=== PATIENT | male | born 1975 | race Two or more races ===

== ENCOUNTER 2021-01-05 12:01 | Emergency (ER) | payer MEDICAID, OTHER ==
[~2021-01-05] VITALS: Ht 170.2 cm; Wt 86.2 kg
[2021-01-05] MEDS ORDERED: LIDOCAINE 1% HCL (LOCAL ANESTH.) INJ 20ML MDV IJ ONE (15:15)
[2021-01-05] MEDS ORDERED: cefTRIAXone SOD 1,000 MG VL IM ONE (15:15)
[2021-01-05 15:31] VITALS: BP 125/90
== END 2021-01-05 16:06 | disposition home or self-care (01) ==
LOC: ER 12:01
DX: N49.2 Inflammatory disorders of scrotum (principal); N43.3 Hydrocele, unspecified
CPT/HCPCS: 55100; 76870; 96372; 99284; J0696

== ENCOUNTER 2021-02-25 14:41 | Inpatient (IN) | payer MEDICAID ==
[~2021-02-25] VITALS: Ht 170.2 cm; Wt 89.1 kg
[2021-02-25] MEDS ORDERED: TAMSULOSIN HYDROCHLORIDE 0.4 MG CAP PO ONE (15:15)
[2021-02-25 15:35] LABS: Basophils # (auto) 0.1 10 ^3/uL (0-0.2); Basophils % (auto) 0.4 % (0.0-2.0); Eosinophils # (auto) 0.1 10 ^3/uL (0-0.8); Eosinophils % (auto) 0.5 % (0.0-7.0); Hematocrit 42.9 % (41.0-53.0); Hemoglobin 14.8 g/dL (13.5-17.5); Lymphocytes # (auto) 3.1 10 ^3/uL (0.4-5.4); Lymphocytes % (auto) 16.1 % (10.0-50.0); Mean Corpuscular Hemoglobin 30.4 pg (28.0-32.0); Mean Corpuscular Hgb Conc. 34.6 g/dL (32.0-36.0); Mean Corpuscular Volume 87.9 fL (80.0-100.0); Monocytes # (auto) 2.3 10 ^3/uL (0-1.3); Monocytes % (auto) 11.9 % (0.0-12.0); Neutrophils # (auto) 13.9 10 ^3/uL (1.6-8.6); Neutrophils % (auto) 71.1 % (37.0-80.0); Nucleated Red Blood Cells % 0.1 %; Red Blood Cells 4.88 10^6/uL (4.5-5.90); Red Cell Distribution Width 12.5 % (11.8-14.3); White Blood Cell 19.5 10^3/uL (4.4-10.8)
[2021-02-25 15:52] LABS: Albumin 3.8 g/dL (3.4-5.0); Calcium 9.4 mg/dL (8.5-10.1); Potassium 3.9 mmol/L (3.5-5.1)
[2021-02-25 15:55] LABS: BUN/Creatinine Ratio 10.6; Bilirubin, Total 0.4 mg/dL (0.2-1.0); Total Protein 8.3 g/dL (6.4-8.2)
[2021-02-25 17:18] LABS: Urine Bacteria FEW /hpf (None Seen); Urine Blood 1+ /uL (Negative); Urine Hyaline Cast FEW /lpf (0 - 2); Urine Specific Gravity 1.005 (1.001-1.035); Urine WBC 131 /hpf (0 - 3); Urine WBC Clumps PRESENT /hpf (None Seen)
[2021-02-25] MEDS ORDERED: cefTRIAXone 1GM/50ML D5W 50 ML IV ONE (18:30)
[2021-02-25] MEDS ORDERED: ACETAMINOPHEN 325 MG TAB PO PRN (20:45)
[2021-02-25] MEDS ORDERED: MORPHINE SULFATE 4 MG/ML SYR/VIAL IV PRN (20:45)
[2021-02-25] MEDS: SODIUM CHLORIDE 0.9% 1,000 ML IV SCH (20:45)
[2021-02-25] MEDS ORDERED: HYDROcodone-ACET 5/325MG TAB PO PRN (20:45)
[2021-02-25] MEDS ORDERED: DOCUSATE SOD 100 MG CAP PO PRN (20:45)
[2021-02-25] MEDS ORDERED: DEXTROSE (50%) 50ML SYRG IV PRN (20:45)
[2021-02-25] MEDS ORDERED: ONDANSETRON HCL 4 MG/2 ML VIAL IV PRN (20:45)
[2021-02-25] MEDS: ACETAMINOPHEN 325 MG TAB PO PRN (20:55)
[2021-02-25] MEDS: ACCU-CHEK COMFORT CURVE STRIP VI SCH (22:21)
[2021-02-25] MEDS: InsuLIN REG 1unit/0.01ml Soln (100units/ml) SC SCH (22:22)
[2021-02-25] MEDS ORDERED: NITROGLYCERIN 0.4 MG SL TAB SL PRN (23:15)
[2021-02-26] MEDS: ACCU-CHEK COMFORT CURVE STRIP VI SCH ×4 (06:38→21:39)
[2021-02-26] MEDS: InsuLIN REG 1unit/0.01ml Soln (100units/ml) SC SCH ×4 (06:42→21:54)
[2021-02-26 07:59] LABS: Basophils # (auto) 0.1 10 ^3/uL (0-0.2); Basophils % (auto) 0.5 % (0.0-2.0); Eosinophils # (auto) 0.1 10 ^3/uL (0-0.8); Eosinophils % (auto) 0.7 % (0.0-7.0); Hematocrit 41.6 % (41.0-53.0); Hemoglobin 14.6 g/dL (13.5-17.5); Lymphocytes # (auto) 2.6 10 ^3/uL (0.4-5.4); Lymphocytes % (auto) 24.5 % (10.0-50.0); Mean Corpuscular Hemoglobin 30.9 pg (28.0-32.0); Mean Corpuscular Hgb Conc. 35.1 g/dL (32.0-36.0); Mean Corpuscular Volume 88.1 fL (80.0-100.0); Monocytes # (auto) 1.4 10 ^3/uL (0-1.3); Monocytes % (auto) 13.4 % (0.0-12.0); Neutrophils # (auto) 6.5 10 ^3/uL (1.6-8.6); Neutrophils % (auto) 60.9 % (37.0-80.0); Red Blood Cells 4.72 10^6/uL (4.5-5.90); Red Cell Distribution Width 12.6 % (11.8-14.3); White Blood Cell 10.7 10^3/uL (4.4-10.8)
[2021-02-26 08:24] LABS: Albumin 3.4 g/dL (3.4-5.0); BUN/Creatinine Ratio 12.3; Calcium 9.2 mg/dL (8.5-10.1); Potassium 4.2 mmol/L (3.5-5.1)
[2021-02-26 08:27] LABS: Bilirubin, Total 0.4 mg/dL (0.2-1.0)
[2021-02-26] MEDS: cefTRIAXone 1GM/50ML D5W 50 ML IV SCH (08:46)
[2021-02-26] MEDS: ENOXAPARIN SOD 40 MG/0.4 ML SYRINGE SC SCH (09:51)
[2021-02-26] MEDS: FAMOTIDINE (10MG/ML) 2ML VL IV SCH (09:51)
[2021-02-26] MEDS: SODIUM CHLORIDE 0.9% 1,000 ML IV SCH (13:25)
[2021-02-26 15:30] VITALS: BP 111/78
[2021-02-26 17:00] VITALS: BP 109/77
[2021-02-26] MEDS ORDERED: TAMSULOSIN HYDROCHLORIDE 0.4 MG CAP PO SCH (18:00)
[2021-02-26] MEDS: ACETAMINOPHEN 325 MG TAB PO PRN (18:34)
[2021-02-26] MEDS ORDERED: METF-370 PO (19:08)
[2021-02-26] MEDS ORDERED: PIO30T PO (19:08)
[2021-02-26] MEDS ORDERED: GLIP5TAB12 PO (19:08)
[2021-02-26 22:00] VITALS: BP 119/82
[2021-02-27 05:00] VITALS: BP 110/72
[2021-02-27] MEDS: ACCU-CHEK COMFORT CURVE STRIP VI SCH ×2 (06:21→11:14)
[2021-02-27] MEDS: InsuLIN REG 1unit/0.01ml Soln (100units/ml) SC SCH ×2 (06:24→11:53)
[2021-02-27] MEDS: SODIUM CHLORIDE 0.9% 1,000 ML IV SCH (06:49)
[2021-02-27 08:00] VITALS: BP 116/83
[2021-02-27 09:00] VITALS: BP 116/83
[2021-02-27] MEDS: FAMOTIDINE (10MG/ML) 2ML VL IV SCH (11:09)
[2021-02-27] MEDS: ENOXAPARIN SOD 40 MG/0.4 ML SYRINGE SC SCH (11:09)
[2021-02-27] MEDS: cefTRIAXone 1GM/50ML D5W 50 ML IV SCH (11:10)
[2021-02-27 14:18] VITALS: BP 115/78
== END 2021-02-27 14:58 | disposition home or self-care (01) | DRG 720 ==
LOC: ER 14:42 → OVERFLOW 23:15 → WEST WING 02-26 12:52
PROVIDERS: ADMIT Nurse Practitioner Family; ATTEND Family Medicine
DX: A41.51 Sepsis due to Escherichia coli [E. coli] (principal); N12 Tubulo-interstitial nephritis, not specified as acute or chronic; E11.65 Type 2 diabetes mellitus with hyperglycemia; E78.5 Hyperlipidemia, unspecified; I10 Essential (primary) hypertension; Z20.822 Contact with and (suspected) exposure to COVID-19; Z91.14 Patient's other noncompliance with medication regimen
CPT/HCPCS: 36415; 71046; 74176; 80053; 81001; 82962; 83036; 83605; 85025; 87040; 87086; 87088; 87186; 87426; 93005; 96365; 96366; 96372; 96375; G0378; J0696; J1815; J3490

== ENCOUNTER 2021-09-29 00:15 | Emergency (ER) | payer MEDICAID ==
[~2021-09-29] VITALS: Ht 170.2 cm; Wt 90.7 kg
[2021-09-29 00:15] VITALS: BP 129/77
[~2021-09-29 00:15] MED LIST: GLIP5TAB12 PO; METF-370 PO; PIO30T PO
[2021-09-29] MEDS ORDERED: LIDO5PAD8 EX (00:45)
[2021-09-29] MEDS ORDERED: ACYC-161 GT (00:45)
[2021-09-29] MEDS ORDERED: ACYCLOVIR 400 MG TAB PO ONE (01:00)
[2021-09-29 01:30] LABS: Urine Bacteria NONE SEEN /hpf (None Seen); Urine Blood Negative /uL (Negative); Urine Specific Gravity 1.033 (1.001-1.035); Urine WBC 2 /hpf (0 - 3)
== END 2021-09-29 00:57 | disposition home or self-care (01) ==
LOC: ER 00:19
DX: B02.23 Postherpetic polyneuropathy (principal); E11.9 Type 2 diabetes mellitus without complications; E78.5 Hyperlipidemia, unspecified; Z79.899 Other long term (current) drug therapy
CPT/HCPCS: 81001

== ENCOUNTER 2022-09-19 20:58 | Emergency (ER) | payer MEDICAID ==
[~2022-09-19] VITALS: Ht 170.2 cm; Wt 80.0 kg
[~2022-09-19 20:58] MED LIST changes: +ACYC-161 GT; +LIDO5PAD8 EX
[2022-09-19 21:10] VITALS: BP 134/69
== END 2022-09-20 01:26 | disposition left against medical advice (07) ==
LOC: ER 20:58
DX: J11.1 Influenza due to unidentified influenza virus with other respiratory manifestations (principal); Z53.21 Procedure and treatment not carried out due to patient leaving prior to being seen by health care provider